=== PATIENT | female | born 1950 ===

== ENCOUNTER 2017-08-09 08:59 | Emergency (ER) | payer MEDICARE, OTHER ==
[2017-08-09 09:30] VITALS: BMI 26.2
[2017-08-09 09:50] VITALS: BP 166/81; PULSE 59; RESP 18; TEMP 97.5; O2SAT 96
--- NOTE | 2017-08-09 10:45 | RAD ---
PROCEDURE: Radiographs of the Right Shoulder HISTORY: fall COMPARISON: None available. FINDINGS: BONES: Osseous demineralization. Degenerative changes. No acute displaced fracture. The distal clavicle and underlying ribs appear intact. High-riding humeral head may be seen in setting of chronic rotator cuff injury. JOINTS: No acute dislocation. Glenohumeral joint space narrowing. Acromioclavicular arthropathy. SOFT TISSUES: Soft tissues appear unremarkable. No evidence of radiopaque foreign body. IMPRESSION: No acute displaced fracture or dislocation evident. If symptoms persist or if there is continued clinical concern, x-ray follow-up in 7-10 days should be considered. Degenerative changes. High-riding humeral head may be seen in setting of chronic rotator cuff injury. Glenohumeral joint space narrowing. Acromioclavicular arthropathy. Osseous demineralization.
--- NOTE | 2017-08-09 11:38 | C.PDOC ---
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 Patient states she fell and hit right side of mouth and right shoulder landed on knee developing pain 08/28. Patient denies loc, neck or back pain, loose teeth, or any other complaints at this time. - HPI Time Seen by Provider: 08/09/17 10:00 Chief Complaint (Nursing): Trauma History Per: Patient History/Exam Limitations: no limitations Onset/Duration Of Symptoms: Hrs Past Medical History Reviewed: Historical Data, Nursing Documentation, Vital Signs Vital Signs: Last Vital Signs Temp 97.5 F L 08/09/17 09:31 Pulse 59 L 08/09/17 09:31 Resp 18 08/09/17 09:31 BP 166/81 H 08/09/17 09:31 Pulse Ox 96 08/09/17 11:38 - Medical History PMH: HTN Surgical History: No Surg Hx Family History: States: No Known Family Hx - Social History Hx Alcohol Use: No Hx Substance Use: No - Immunization History Hx Tetanus Toxoid Vaccination: No Hx Influenza Vaccination: No Hx Pneumococcal Vaccination: No Review Of Systems Except As Marked, All Systems Reviewed And Found Negative. Constitutional: Negative for: Fever, Chills Eyes: Negative for: Vision Change Respiratory: Negative for: Shortness of Breath Gastrointestinal: Negative for: Nausea, Vomiting Musculoskeletal: Positive for: Shoulder Pain, Leg Pain Skin: Negative for: Rash Neurological: Positive for: Headache. Negative for: Weakness, Numbness, Dizziness Physical Exam - Physical Exam Appears: Non-toxic, No Acute Distress Skin: Warm, Dry, No Rash Head: Atraumatic, Normacephalic Eye(s): bilateral: Normal Inspection Oral Mucosa: Moist Lips: Swelling, Abrasion Teeth: Normal Dentition, No Loose Neck: Normal ROM, Supple Chest: Symmetrical Cardiovascular: Rhythm Regular, No Murmur Respiratory: Normal Breath Sounds, No Rales, No Rhonchi, No Wheezing Extremity: Tenderness (to right shoulder), Other (bilateral abrasion to knees) Neurological/Psych: Oriented x3 ED Course And Treatment O2 Sat by Pulse Oximetry: 96 (RA) Pulse Ox Interpretation: Normal Medical Decision Making Medical Decision Making: Plan: * Pain medication * XRAY to shoulder showed no fracture * Patient improved discharged home Disposition Counseled Patient/Family Regarding: Studies Performed, Diagnosis, Need For Followup - Disposition Disposition: HOME/ ROUTINE Disposition Time: 11:37 Condition: STABLE Instructions: Contusion in Adults (ED), RICE Therapy (ED), Facial Contusion (ED ) Forms: Gen Discharge Inst Green[place]ic - CARLOS Present On Arrival: None - Clinical Impression Clinical Impression: Contusion - Scribe Statement The provider has reviewed the documentation as recorded by the Sosaibsilvano Jackson All medical record entries made by the Sosaibsilvano were at my direction and personally dictated by me. I have reviewed the chart and agree that the record accurately reflects my personal performance of the history, physical exam, medical decision making, and the department course for this patient. I have also personally directed, reviewed, and agree with the discharge instructions and disposition.
== END 2017-08-09 11:15 | disposition home or self-care (01) ==
LOC: C.ER 08:59
DX: S40.011A Contusion of right shoulder, initial encounter (principal); S80.211A Abrasion, right knee, initial encounter; S80.212A Abrasion, left knee, initial encounter; W01.0XXA Fall on same level from slipping, tripping and stumbling without subsequent striking against object, initial encounter; Y93.01 Activity, walking, marching and hiking; Y92.89 Other specified places as the place of occurrence of the external cause
CPT/HCPCS: 73030; 96372; 99284; J1885